=== PATIENT | female | born 1955 | race Asian ===

== ENCOUNTER 2017-07-03 20:27 | Emergency (ER) | payer OTHER ==
--- NOTE | 2017-07-03 22:24 | ED Physician Documentation ---
History of Present Illness - Stated complaint Stated Complaint: ANXIETY - Chief complaint Chief Complaint: MHE - History obtained from History obtained from: Patient - History of Present Illness Timing: Today Pain level max: 0 Pain level now: 0 Improved by: usually xanax helps Worsened by: nothing - Additonal information Additional information: Patient has a history of anxiety and panic attacks. States ran out of her xanax. Today had a panic attack and came here for evaluation. No chest pain. No SI/HI. States feeling better now, but still anxious. Review of Systems Constitutional: denies: Fever, Chills Nose: denies: Rhinorrhea / runny nose, Congestion Respiratory: denies: Cough GI: denies: Nausea, Vomiting, Diarrhea Skin: denies: Rash Musculoskeletal: denies: Neck pain, Back pain Psychiatric: reports: Anxiety. denies: Suicidal, Homicidal PD PAST MEDICAL HISTORY - Past Medical History Past Medical History: Yes Cardiovascular: Murmur Respiratory: None Neuro: None Endocrine/Autoimmune: HyPOthyroidism GI: None, Cholelithiasis [employer]RI[employer]OR [employer]: None : None HEENT: None Psych: Anxiety Musculoskeletal: None Derm: None - Past Surgical History Past Surgical History: Yes General: Cholecystectomy /[employer]RI[employer]ER: Hysterectomy - Present Medications Home Medications: Ambulatory Orders Medication Instructions Recorded Confirmed Alprazolam [Xanax] 0.5 mg PO Q8H PRN #7 tablet 07/03/17 Levothyroxine Sodium [Synthroid] 75 mcg PO DAILY 07/03/17 07/03/17 - Allergies Allergies/Adverse Reactions: Allergies Allergy/AdvReac Type Severity Reaction Status Date / Time lorazepam [From Ativan] AdvReac Anxiety Verified 07/03/17 20:35 Sulfa (Sulfonamide AdvReac Hives Verified 07/03/17 20:35 Antibiotics) - Social History Does the pt smoke?: No Smoking Status: Never smoker Does the pt drink ETOH?: No Does the pt have substance abuse?: No - Immunizations Immunizations are current?: Yes PD ED PE NORMAL - Vitals Vital signs reviewed: Yes - General General: Alert and oriented X 3, No acute distress - HEENT HEENT: Moist mucous membranes - Neck Neck: Supple, no meningeal sign - Cardiac Cardiac: RRR, Strong equal pulses - Respiratory Respiratory: No respiratory distress, Clear bilaterally - Abdomen Abdomen: Soft, Non tender, Non distended - Derm Derm: Warm and dry - Neuro Neuro: Alert and oriented X 3 - Psych Psych: Other (appears anxious) Results - Vitals Vitals: Vital Signs - 24 hr 07/03/17 07/03/17 20:29 22:40 Temperature 36.8 C 36.5 C Heart Rate 89 76 Respiratory 16 16 Rate Blood Pressure 152/69 H 133/73 H O2 Saturation 100 96 PD MEDICAL DECISION MAKING - ED course Complexity details: re-evaluated patient, considered differential, d/w patient, d/w family ED course: Patient is a 62-year-old female who presents to the emergency department with her usual panic attack. She is out of her Xanax. Given Xanax here and feels better. We will refill her medications for her, she states she rarely uses Xanax. Therefore will only prescribe a small amount. We will have her obtain the rest from her doctor. She is well-appearing, nontoxic. No evidence of acute coronary syndrome, pulmonary embolus. No respiratory distress. Patient counseled regarding signs and symptoms for which I believe and urgent re- evaluation would be necessary. Patient with good understanding of and agreement to plan and is comfortable going home at this time This document was made in part using voice recognition software. While efforts are made to proofread this document, sound alike and grammatical errors may occur. Departure - Departure Disposition: 01 Home, Self Care Clinical Impression: Anxiety Condition: Good Instructions: ED Panic Attack Follow-Up: Caprice Greer MD [Primary Care Provider] - Within 1 week Prescriptions: Alprazolam [Xanax] 0.5 mg PO Q8H PRN #7 tablet PRN Reason: Anxiety Comments: Return if you worsen. do not drive or operate heavy machinery while taking the xanax Discharge Date/Time: 07/03/17 22:42
[2017-07-03] MEDS ORDERED: ALPRAZolam 0.25 MG TABLET PO STA (22:26)
[2017-07-03 22:42] VITALS: BP 133/73
== END 2017-07-03 22:42 | disposition home or self-care (01) ==
LOC: ED 20:27
DX: F41.9 Anxiety disorder, unspecified (principal)
CPT/HCPCS: 99283; A9270